=== PATIENT | female | born 1995 | race Caucasian/White ===

== ENCOUNTER 2016-12-03 23:42 | Emergency (ER) | payer SELFPAY ==
[~2016-12-03] VITALS: Ht 167.6 cm; Wt 99.8 kg
[2016-12-03 23:44] VITALS: BP 138/76
--- NOTE | 2016-12-03 23:59 | NUR ---
PATIENT AMBULATED TO ER BED 8.
--- NOTE | 2016-12-04 00:08 | NUR ---
PATIENT PRESENTS TO ED WITH ABD PAIN, NAUSEA, DIZZINESS, FOR A WEEK,SHAKING AND FEELING TO PASS OUT . SKIN IS PINK/WARM/DRY; AAOX4 WITH EVEN AND STEADY GAIT; LUNGS CLEAR BL; HR EVEN AND REGULAR; PT DENIES ANY FEVER, CP, SOB, OR COUGH AT THIS TIME; PATIENT STATES PAIN OF 8/10 AT THIS TIME; VSS; PATIENT POSITIONED FOR COMFORT; HOB ELEVATED; BEDRAILS UP X2; BED DOWN. ER MD MADE AWARE OF PT STATUS.
--- NOTE | 2016-12-04 00:10 | NUR ---
PATIENT BEING EVALUATED BY DR. JENNINGS.
[2016-12-04] MEDS ORDERED: PROCHLORPERAZINE 10 MG/2 ML VIAL IM ONE (00:25)
[2016-12-04] MEDS ORDERED: diphenhydrAMINE 50 MG/ML VIAL IM ONE (00:25)
[2016-12-04 00:59] VITALS: BP 132/79
--- NOTE | 2016-12-04 00:59 | NUR ---
Patient discharged with v/s stable. Written and verbal after care instructions given and explained. Patient alert, oriented and verbalized understanding of instructions. Ambulatory with steady gait. All questions addressed prior to discharge. ID band removed. Patient advised to follow up with PMD. Rx of BENADRYL 25MG AND COMPAZINE 10MG given. Patient educated on indication of medication including possible reaction and side effects. Opportunity to ask questions provided and answered.
== END 2016-12-04 00:59 | disposition home or self-care (01) ==
LOC: MED 23:42
DX: G43.909 Migraine, unspecified, not intractable, without status migrainosus (principal); R03.0 Elevated blood-pressure reading, without diagnosis of hypertension; R10.9 Unspecified abdominal pain
CPT/HCPCS: 81002; 81025; 96372; 99284; J0780; J1200

== ENCOUNTER 2017-07-06 16:14 | Emergency (ER) | payer MEDICAID ==
[~2017-07-06] VITALS: Ht 167.6 cm; Wt 114.4 kg
[2017-07-06 17:27] VITALS: BP 114/66
--- NOTE | 2017-07-06 20:00 | NUR ---
22/F c/o lower abdcominal cramping since this am. Pt reports being 5 weeks . G-1 P-0. Patient c/o severe nausea and vomiting since this am. Denies vaginal bleeding or discharge. Patient is AOX4, skin warm and dry. Pt also c/o dizziness at this time. VSS. Boyfriend with pt. Comfort needs provided.
[2017-07-06] MEDS ORDERED: NACL 0.9% 1,000 ML IV ONE (20:10)
[2017-07-06] MEDS ORDERED: ONDANSETRON 4 MG/2 ML VIAL IVP ONE (20:10)
[2017-07-06 20:22] LABS: BASOPHILS # (AUTO) 0.7 K/uL (0.00-0.22); BASOPHILS % (AUTO) 4.7 % (0.0-2.0); EOSINOPHILS # (AUTO) 0.1 K/uL (0-0.4); EOSINOPHILS % (AUTO) 0.4 % (0.0-4.0); LYMPHOCYTES # (AUTO) 1.7 K/uL (2.5-16.5); LYMPHOCYTES % (AUTO) 11.9 % (20.5-51.1); MEAN CORPUSCULAR HEMOGLOBIN 30 pg (27-31); MEAN CORPUSCULAR HGB CONC 33 g/dL (33-37); MEAN CORPUSCULAR VOLUME 89 fL (80-94); MONOCYTES # (AUTO) 0.7 K/uL (0.8-1.0); NEUTROPHILS # (AUTO) 11.4 K/uL (1.8-7.7); PLATELET COUNT (AUTO) 350 K/uL (140-450); RED BLOOD CELL COUNT(AUTO) 4.38 MIL/uL (4.20-5.40); RED CELL DISTRIBUTION WIDTH 13.4 % (11.6-13.7); WHITE BLOOD COUNT (AUTO) 14.6 K/uL (4.8-10.8)
[2017-07-06] MEDS ORDERED: METOCLOPRAMIDE 10 MG/2 ML INJ VIAL IVP ONE ×2 (20:50→23:25)
[2017-07-06] MEDS ORDERED: MORPHINE SULFATE 4 MG/ML SYR IVP ONE ×2 (20:50→21:05)
[2017-07-06 21:30] LABS: ANION GAP 16.5 (8-16); CARBON DIOXIDE 22.1 mmol/L (21-32); CREATININE 0.6 mg/dL (0.6-1.3); POTASSIUM 3.6 mmol/L (3.5-5.1)
--- NOTE | 2017-07-06 21:31 | NUR ---
Pt report given to Maria De Jesus TRINIDAD. Transfer of care at this time.
[2017-07-06 21:35] LABS: ALBUMIN 3.7 g/dL (3.4-5.0); TOTAL BILIRUBIN 0.6 mg/dL (0.0-1.0)
[2017-07-06 22:05] LABS: APPEARANCE,URINE CLEAR (CLEAR); BILIRUBIN,URINE 1+ (NEGATIVE); BLOOD, URINE NEGATIVE (NEGATIVE); COLOR,URINE YELLOW (YELLOW); LEUKOCYTE ESTERASE ,URINE NEGATIVE (NEGATIVE); NITRITE, URINE NEGATIVE (NEGATIVE); UGLUCOSE NEGATIVE (NEGATIVE)
--- NOTE | 2017-07-07 00:04 | NUR ---
NO VOMITING NOTED SINCE ADMINISTRATION OF REGLAN.
--- NOTE | 2017-07-07 00:04 | NUR ---
US AT BEDSIDE.
[2017-07-07 01:00] VITALS: BP 114/69
--- NOTE | 2017-07-07 01:00 | NUR ---
Patient discharged with v/s stable. Written and verbal after care instructions given and explained. Patient alert, oriented and verbalized understanding of instructions. Ambulatory with steady gait. All questions addressed prior to discharge. ID band removed. Patient advised to follow up with PMD. Rx of zofran 4mg, reglan 10mg given. Patient educated on indication of medication including possible reaction and side effects. Opportunity to ask questions provided and answered.
[2017-07-07 03:08] LABS: RBC,URINE 0-5 (RARE) /HPF (0-5); WBC,URINE 0-5 (RARE) /HPF (0-5)
[2017-07-08 06:14] LABS: CHLAMYDIA TRACHOMATIS AMP DNA Negative (Negative)
== END 2017-07-07 01:00 | disposition home or self-care (01) ==
LOC: MED 16:14
DX: O99.611 Diseases of the digestive system complicating pregnancy, first trimester (principal); O21.0 Mild hyperemesis gravidarum; Z3A.01 Less than 8 weeks gestation of pregnancy
CPT/HCPCS: 36415; 76705; 80053; 81001; 82948; 83690; 84702; 85025; 86900; 86901; 87491; 96361; 96374; 96375; 96376; 99285; J2270; J2405; J2765; J7030; Q0092

== ENCOUNTER 2019-09-03 16:45 | Inpatient (IN) | payer MEDICAID, OTHER ==
[~2019-09-03] VITALS: Ht 170.2 cm; Wt 132.0 kg
[2019-09-03 17:05] VITALS: BP 148/52
--- NOTE | 2019-09-03 17:09 | NUR ---
24 Y/O FEMALE C/O RUQ PAIN RADIATING TO MID BACK X 45 MIN. STATES 10/10 INTERMITTENT SHARP PAIN. STATES STERNAL CHEST PAIN WHEN ABD PAIN OCCURS. DENIES SOB. + NAUSEA. DENIES V/D. ABD SOFT, ROUND, NONTENDER. STATES SHE TOOK TYLENOL AT 1400 WITH NO PAIN RELIEF. PT TEARFUL IN BED STATES SHE IS UNABLE TO GET COMFORTABLE. RR EVEN AND UNLABORED. VSS MEDHX: DENIES ALLERGIES: NKA
--- NOTE | 2019-09-03 17:09 | NUR ---
PT TAKEN TO ER BED 7 VIA W/C
--- NOTE | 2019-09-03 17:42 | NUR ---
DR. TORREZ MADE AWARE OF PAIN
[2019-09-03] MEDS ORDERED: NACL 0.9% 1,000 ML IV SCH (17:53)
[2019-09-03] MEDS ORDERED: ONDANSETRON 4 MG/2 ML VIAL IVP ONE (17:55)
[2019-09-03] MEDS ORDERED: KETOROLAC 30 MG/ML VIAL IVP ONE (17:55)
--- NOTE | 2019-09-03 18:22 | NUR ---
ULTRASOUND AT BEDSIDE
[2019-09-03 18:23] LABS: BASOPHILS % (AUTO) 0.2 % (0.0-2.0); EOSINOPHILS # (AUTO) 0.1 K/uL (0-0.4); EOSINOPHILS % (AUTO) 0.8 % (0.0-4.0); HEMATOCRIT 40.6 % (36-48); HEMOGLOBIN 13.5 g/dL (12.0-16.0); LYMPHOCYTES # (AUTO) 1.5 K/uL (2.5-16.5); LYMPHOCYTES % (AUTO) 9.1 % (20.5-51.1); MEAN CORPUSCULAR HEMOGLOBIN 29 pg (27-31); MEAN CORPUSCULAR HGB CONC 33 g/dL (33-37); MEAN CORPUSCULAR VOLUME 88.5 fL (80-94); MONOCYTES # (AUTO) 0.6 K/uL (0.8-1.0); MONOCYTES % (AUTO) 3.5 % (1.7-9.3); NEUTROPHILS # (AUTO) 14.4 K/uL (1.8-7.7); NEUTROPHILS % (AUTO) 86.4 % (42.2-75.2); PLATELET COUNT (AUTO) 319 K/uL (140-450); RED BLOOD CELL COUNT(AUTO) 4.59 MIL/uL (4.20-5.40); RED CELL DISTRIBUTION WIDTH 14.3 % (11.6-13.7); WHITE BLOOD COUNT (AUTO) 16.7 K/uL (4.8-10.8)
[2019-09-03 18:39] LABS: ALBUMIN 3.7 g/dL (3.4-5.0); ANION GAP 10.3 (8-16); CARBON DIOXIDE 28.5 mmol/L (21-32); CREATININE 0.6 mg/dL (0.6-1.3); POTASSIUM 3.8 mmol/L (3.5-5.1); TOTAL BILIRUBIN 0.6 mg/dL (0.0-1.0)
[2019-09-03 18:40] LABS: APPEARANCE,URINE CLEAR (CLEAR); BILIRUBIN,URINE NEGATIVE (NEGATIVE); BLOOD, URINE NEGATIVE (NEGATIVE); COLOR,URINE YELLOW (YELLOW); LEUKOCYTE ESTERASE ,URINE NEGATIVE (NEGATIVE); NITRITE, URINE NEGATIVE (NEGATIVE); PH,URINE 5.5 (5.0-9.0); UGLUCOSE NEGATIVE (NEGATIVE)
[2019-09-03] MEDS ORDERED: PIPERACILLIN/TAZOBACTAM 3.375 GM in DEXTROSE 5% 50 ML IV ONE (19:10)
[2019-09-03] MEDS ORDERED: PIPERACILLIN/TAZOBACTAM 3.375 GM VIAL IV ONE (19:14)
--- NOTE | 2019-09-03 19:20 | NUR ---
REPORT GIVEN TO VIVI LEAVITT. TRANSFER OF CARE AT THIS TIME
--- NOTE | 2019-09-03 20:40 | NUR ---
Patient will be admitted to care of DR. SALOMON. Admited to M/S. Will go to room 123B. Belongings list completed. Report to VIVI TOLBERT.
--- NOTE | 2019-09-03 20:40 | NUR ---
PT ARRIVED AT UNIT VIA GURNEY, RECEIVED BEDSIDE REPORT FROM ED NURSE DAGMAR RN, PT STABLE, NO DISTRESS NOTED, IV TO L AC 20G PATENT INTACT, INFUSING WELL, PT ON ROOM AIR, NO SOB NOTED, ORIENT PT TO ROOM, CALL LIGHT, BED, MRSA SWAB TAKEN, V/S TAKEN, INITIAL ASSESSMENT DONE, ALL SAFETY PRECAUTION MET, CALL LIGHT WITHIN REACH, WILL CONTINUE TO MONITOR.
[2019-09-03 21:00] VITALS: BP 113/61
[2019-09-03] MEDS ORDERED: ONDANSETRON 4 MG/2 ML VIAL IVP PRN (21:20)
--- NOTE | 2019-09-03 21:25 | NUR ---
TALKED TO DR. SALOMON, ORDERS RECEIVED, WILL PUT IN ORDERS AND CONTINUE WITH ORDERS.
[2019-09-03] MEDS: MORPHINE SULFATE 2 MG/ML SYR IVP PRN (21:48)
[2019-09-03] MEDS: DEXT 5% /NACL 0.9% 1,000 ML IV SCH (21:48)
--- NOTE | 2019-09-03 21:48 | NUR ---
MEDICATED PT WITH MORPHINE FOR PAIN 03/12 TO THE HEAD. PT TOLERATED WELL, NO DISTRESS NOTED, CALL LIGHT WITHIN REACH, WILL CONTINUE TO MONITOR.
[2019-09-04] VITALS: BP 128/56
[2019-09-04] MEDS ORDERED: PIPERACILLIN/TAZOBACTAM 3.375 GM VIAL IV ONE ×2 (00:05→05:00)
[2019-09-04] MEDS: KETOROLAC 30 MG/ML VIAL IVP PRN ×2 (00:14→18:29)
--- NOTE | 2019-09-04 00:14 | NUR ---
PT STATED STARTED TO FEEL PAIN AGAIN 01/09 TO THE ABD, MEDICATION TORADOL PER DR ORDER ADMINISTERED, PT TOLERATED WELL, CALL LIGHT WITHIN REACH, WILL CONTINUE TO MONITOR.
[2019-09-04] MEDS: PIPERACILLIN/TAZOBACTAM 3.375 GM in DEXTROSE 5% 50 ML IV SCH ×3 (00:17→12:58)
--- NOTE | 2019-09-04 01:18 | NUR ---
TALKED TO DR. SALOMON REGARDING PT FEELING ANXIOUS AND CRYING, PER TO ORDER ATIVAN 1MG IVP ONCE. WILL PUT IN ORDER AND CONTINUE WITH ORDERS.
[2019-09-04] MEDS ORDERED: LORazepam 2 MG/ML VIAL IVP SCH (01:20)
--- NOTE | 2019-09-04 01:34 | NUR ---
MEDICATION ADMINISTERED PT TOLERATED WELL, NO DISTRESS NOTED, CALL LIGHT WITHIN REACH, WILL CONTINUE TO MONITOR.
--- NOTE | 2019-09-04 03:18 | NUR ---
CHECKED ON PT, PT SLEEPING, NO DISTRESS NOTED, CALL LIGHT WITHIN REACH, WILL CONTINUE TO MONITOR.
[2019-09-04 04:20] LABS: BASOPHILS % (AUTO) 0.3 % (0.0-2.0); EOSINOPHILS # (AUTO) 0.1 K/uL (0-0.4); EOSINOPHILS % (AUTO) 1.5 % (0.0-4.0); HEMATOCRIT 35.7 % (36-48); LYMPHOCYTES # (AUTO) 2.4 K/uL (2.5-16.5); LYMPHOCYTES % (AUTO) 30.5 % (20.5-51.1); MEAN CORPUSCULAR HEMOGLOBIN 30 pg (27-31); MEAN CORPUSCULAR HGB CONC 34 g/dL (33-37); MEAN CORPUSCULAR VOLUME 87.7 fL (80-94); MONOCYTES # (AUTO) 0.5 K/uL (0.8-1.0); MONOCYTES % (AUTO) 6.8 % (1.7-9.3); NEUTROPHILS # (AUTO) 4.7 K/uL (1.8-7.7); NEUTROPHILS % (AUTO) 60.9 % (42.2-75.2); PLATELET COUNT (AUTO) 273 K/uL (140-450); RED BLOOD CELL COUNT(AUTO) 4.07 MIL/uL (4.20-5.40); RED CELL DISTRIBUTION WIDTH 14.2 % (11.6-13.7); WHITE BLOOD COUNT (AUTO) 7.8 K/uL (4.8-10.8)
[2019-09-04 04:46] LABS: PROTHROMBIN TIME 9.9 secs (10.8-13.4)
[2019-09-04 04:48] LABS: ALBUMIN 2.9 g/dL (3.4-5.0); ANION GAP 7.3 (8-16); CARBON DIOXIDE 27.3 mmol/L (21-32); CREATININE 0.6 mg/dL (0.6-1.3); POTASSIUM 3.6 mmol/L (3.5-5.1); TOTAL BILIRUBIN 0.8 mg/dL (0.0-1.0)
[2019-09-04] MEDS: DEXT 5% /NACL 0.9% 1,000 ML IV SCH ×3 (05:20→22:17)
--- NOTE | 2019-09-04 07:30 | NUR ---
ENDORSED PT TO DAY SHIFT NURSE BRISA TRINIDAD, PT STABLE, NO DISTRESS NOTED, CALL LIGHT WITHIN REACH
--- NOTE | 2019-09-04 07:41 | NUR ---
RECEIVED PT FROM PET AMBASSADOR FOR CONTINUITY OF CARE. PT IS AAOX4, COOPERATIVE AND ABLE TO MAKE NEEDS KNOWN. PT ON RA WITH NO SOB OR DISTRESS NOTED. SKIN INTACT. IV IN THE L AC 20G INFUSING D5NS @ 125ML/HR. PT STATES SHE HAS 9/10 PAIN. WILL MEDICATE. DISCUSSED POC WITH PT AND PT VERBALIZED UNDERSTANDING. BOARD UPDATED. SAFETY MEASURES IN [place]. WILL CONTINUE TO ROUND ON PT.
[2019-09-04 08:00] VITALS: BP 113/53
[2019-09-04] MEDS: MORPHINE SULFATE 2 MG/ML SYR IVP PRN (08:24)
--- NOTE | 2019-09-04 08:40 | NUR ---
PT TAKEN TO OR. PT LEFT IN STABLE CONDITION.
[2019-09-04] MEDS ORDERED: LIDOCAINE 1% 500 MG/50 ML VIAL ONE (08:45)
[2019-09-04] MEDS ORDERED: BUPIVACAINE-MPF 0.5% 30 ML VIAL INJ ONE (08:46)
[2019-09-04] MEDS ORDERED: NEOSTIGMINE 1:1000 10 MG/10 ML VIAL ONE (08:50)
[2019-09-04] MEDS ORDERED: SUCCINYLCHOLINE CHLORIDE 200 MG/10 ML VIAL IVP ONE (08:50)
[2019-09-04] MEDS ORDERED: ROCURONIUM 50 MG/5 ML VIAL IV ONE (08:50)
[2019-09-04] MEDS ORDERED: DESFLURANE 240 ML BTL INH ONE (08:50)
[2019-09-04] MEDS ORDERED: ONDANSETRON 4 MG/2 ML VIAL ONE (08:50)
[2019-09-04] MEDS ORDERED: LIDOCAINE 2% 100 MG/5 ML SYR IVP ONE (08:50)
[2019-09-04] MEDS ORDERED: GLYCOPYRROLATE 0.2 MG/ML VIAL ONE (08:50)
[2019-09-04] MEDS ORDERED: PROPOFOL 200 MG/20 ML VIAL IV ONE (08:50)
[2019-09-04] MEDS ORDERED: KETOROLAC 30 MG/ML VIAL ONE (08:50)
[2019-09-04] MEDS ORDERED: MIDAZOLAM 2 MG/2 ML VIAL ONE (08:50)
[2019-09-04] MEDS ORDERED: DEXAMETHASONE 4 MG/ML VIAL ONE (08:50)
[2019-09-04] MEDS ORDERED: fentaNYL 0.05 MG/ML VIAL ONE (08:50)
--- NOTE | 2019-09-04 08:52 | NUR ---
PATIENT HAS BEEN SCREENED AND CATEGORIZED LOW NUTRITION RISK. PATIENT WILL BE SEEN WITHIN 7 DAYS OF ADMISSION. 09/10/[address]
[2019-09-04] MEDS ORDERED: CITRIC ACID/SODIUM CITRATE 30 ML UDC PO SCH (09:05)
--- NOTE | 2019-09-04 09:22 | NUR ---
DC PLANNIN YRS OLD FEMALE PATIENT WAS ADMITTED FROM HOME WITH A DX OF CHOLECYSTITIS. PT HAS NO MEDICAL HX . ABDOMINAL US SHOWED ENLARGED ECHOGENIC LIVER , CHOLELITHIASIS WITH OUT EVIDENCE OF CHOLECYSTITIS ADMINISTERED PAIN MEDS , IVF ,CONSULTIED WITH GI DR HUA AND SURGICAL CONSULT WITH DR SHEARER. DC PLAN PER ORDER CM TO FOLLOW. Addendum: 09/04/19 at 1516 by Yamel Gao DC PLANNING: F/U APPOINTMENT DONE WITH PCP DR NELSON ON Monday09/10/19 AT 1115 AM AND ABDULLAHI REMINDER GIVEN TO THE PT.
[2019-09-04] MEDS ORDERED: HYDROmorphone 1 MG/ML AMP IVP PRN (10:10)
[2019-09-04] MEDS ORDERED: ONDANSETRON 4 MG/2 ML VIAL IVP PRN (10:10)
[2019-09-04] MEDS ORDERED: MEPERIDINE 25 MG/ML SYR IVP PRN ×2 (10:40→10:50)
[2019-09-04] MEDS ORDERED: MEPERIDINE 25 MG/ML SYR ONE (10:43)
--- NOTE | 2019-09-04 11:20 | NUR ---
PT RETURNED FROM OR. PT HAS LAP CHOLEY WITH 4 INCISIONS NOTED TO ABD. INCISIONS REINFORCED WITH DERMABOND. PT VERY SLEEPY BUT COMPLAINING OF PAIN. WILL MEDICATE INDICATED.
[2019-09-04] MEDS: HYDROmorphone 1 MG/ML AMP IVP PRN ×2 (11:56→18:54)
--- NOTE | 2019-09-04 13:21 | NUR ---
PT RESTING IN BED. ALL NEEDS MET.
--- NOTE | 2019-09-04 15:41 | NUR ---
PT RESTING IN BES WITH FAMILY AT BEDSIDE. ALL NEEDS MET.
[2019-09-04 16:00] VITALS: BP 127/54
--- NOTE | 2019-09-04 17:26 | NUR ---
PT RESTING IN BED. ALL NEEDS ME.T
--- NOTE | 2019-09-04 19:54 | NUR ---
ENDORSED PT TO OUTSIDE UPHOLSTERER FOR CONTINUITY OF CARE. PT IN STABLE CONDITION.
[2019-09-04] MEDS: ONDANSETRON 4 MG/2 ML VIAL IVP PRN (19:55)
--- NOTE | 2019-09-04 19:55 | NUR ---
RECD, RESTING IN BED, AWAKE, A/OX4, OBESE. RESPIRATION EVEN AND UNLABORED. IV OF D51/2 NS AT 125 ML/HR INFUSING, LEFT AC G20. INCISION IN THE ABDOMEN (4) WITH DERMA CHÁVEZ, OPEN TO AIR, ALL DRY AND INTACT. TOLERATING CLEAR LIQUID, VOIDING WELL, PASSING GAS. PLAN OF CARE DISCUSSED. VERBALIZED UNDERSTANDING. ABDOMINAL PAIN 1/10, STATED TOLERABLE, WAS MEDICATED BY AM NURSE. AT THE BEDSIDE.
--- NOTE | 2019-09-04 19:55 | NUR ---
NAUSEATED, MEDICATED WITH ZOFRAN BY VIVI JOLLY.
--- NOTE | 2019-09-04 20:30 | NUR ---
RESTING COMFORTABLY IN BED, NO NAUSEA NOTED.
--- NOTE | 2019-09-04 20:41 | NUR ---
Patient's Plan of Care was discussed and reviewed with MYKE: EMILY
[2019-09-04] MEDS: HYDROcodone/APAP 5/325 MG 1 TAB TAB PO PRN (22:34)
[2019-09-05] VITALS: BP 120/60
[2019-09-05 02:14] VITALS: BP 125/67
[2019-09-05] MEDS: HYDROmorphone 1 MG/ML AMP IVP PRN ×2 (02:25→08:38)
[2019-09-05] MEDS: ONDANSETRON 4 MG/2 ML VIAL IVP PRN ×2 (02:26→08:38)
--- NOTE | 2019-09-05 02:26 | NUR ---
NAUSEATED, MEDICATED WITH ZOFRAN PER MD ORDER BY VIVI JOLLY.
--- NOTE | 2019-09-05 03:00 | NUR ---
RESTING COMFORTABLY IN BED, NO NAUSEA NOTED.
--- NOTE | 2019-09-05 05:00 | NUR ---
STILL SLEEPING COMFORTABLY IN BED.
[2019-09-05] MEDS: DEXT 5% /NACL 0.9% 1,000 ML IV SCH ×2 (05:20→07:56)
[2019-09-05] MEDS: HYDROcodone/APAP 5/325 MG 1 TAB TAB PO PRN ×2 (05:33→12:07)
[2019-09-05 06:20] LABS: BASOPHILS % (AUTO) 0.2 % (0.0-2.0); EOSINOPHILS % (AUTO) 0.1 % (0.0-4.0); HEMOGLOBIN 11.3 g/dL (12.0-16.0); LYMPHOCYTES # (AUTO) 2.1 K/uL (2.5-16.5); LYMPHOCYTES % (AUTO) 18.3 % (20.5-51.1); MEAN CORPUSCULAR HEMOGLOBIN 29 pg (27-31); MEAN CORPUSCULAR HGB CONC 33 g/dL (33-37); MEAN CORPUSCULAR VOLUME 88.8 fL (80-94); MONOCYTES # (AUTO) 0.6 K/uL (0.8-1.0); MONOCYTES % (AUTO) 5.4 % (1.7-9.3); NEUTROPHILS # (AUTO) 8.8 K/uL (1.8-7.7); PLATELET COUNT (AUTO) 270 K/uL (140-450); RED BLOOD CELL COUNT(AUTO) 3.83 MIL/uL (4.20-5.40); RED CELL DISTRIBUTION WIDTH 14.3 % (11.6-13.7); WHITE BLOOD COUNT (AUTO) 11.6 K/uL (4.8-10.8)
[2019-09-05 07:13] LABS: ALBUMIN 2.8 g/dL (3.4-5.0); CARBON DIOXIDE 27.9 mmol/L (21-32); CREATININE 0.6 mg/dL (0.6-1.3); POTASSIUM 3.9 mmol/L (3.5-5.1); TOTAL BILIRUBIN 0.3 mg/dL (0.0-1.0)
--- NOTE | 2019-09-05 07:20 | NUR ---
CONDITION REMAIN STABLE. ENDORSED TO AM SHIFT NURSE FOR CONTINUITY OF CARE.
--- NOTE | 2019-09-05 07:21 | NUR ---
RECEIVED REPORT FROM THE PAINT ROLLER ASSEMBLER NURSE AT BEDSIDE. PT IS AWAKE AND ORIENTED. SIG OTHER SLEEPING IN THE CHAIR NEXT TO PT. PT IS MS. S/P LAP ROBERT ON 09/03. PT HAS 4 ABD INCISIONS W/ DERMABOND. LBM 09/02. IV ON L AC 20G D5NS AT 125ML/HR. WILL CONTINUE TO MONITOR PT.
[2019-09-05 08:00] VITALS: BP 123/58
--- NOTE | 2019-09-05 08:38 | NUR ---
REQUESTED PAIN MED AN NAUSEA MEDICATION. PAIN LEVEL 8/10. ADMINISTERED DILAUDID AND ZOFRAN. PT TOLERATED WELL. ENCOURAGE PT TO AMBULATE, DRINK PLENTY OF FLUIDS. WILL CONTINUE TO MONITOR PT.
--- NOTE | 2019-09-05 09:30 | NUR ---
DR. Светлана SMITH HERE. PER , RADHA FLUIDS AND GIVE PT AN INCENTIVE SPIROMETER. D/C TODAY. WILL START ON DC INSTRUCTIONS.
--- NOTE | 2019-09-05 12:02 | NUR ---
PT PERFORMED IS WELL, PREDICTED 2900/1900 ACTUAL, RN AWARE
[2019-09-05] MEDS ORDERED: ACET-9525 PO (12:15)
[2019-09-05] MEDS ORDERED: ONDA4TAB PO (12:15)
[2019-09-05] MEDS ORDERED: HYDR-5122 PO (14:55)
--- NOTE | 2019-09-05 15:10 | NUR ---
DC INSTRUCTIONS GIVEN TO PT. SIGNED APPROPRIATE PAPERWORK. PRESCRIPTION FOR NORCO AND ZOFRAN GIVEN. EDUCATED PT RE CONSTIPATION WITH OPIOIDS AND TO TAKE A STOOL SOFTENER, PLENTY OF WATER, AND AMBULATING. PT VERBALIZED UNDERSTANDING. PICTURE OF ABD INCISIONS TAKEN. IV TAKEN OUT. NO BLEEDING NOTED. SPOUSE WILL TAKE ALL PERSONAL BELONGINGS TO THE CAR AND WAIT AT THE DROP OFF. PT IS TO GET DRESSED AND WILL LET US KNOW WHEN PT IS READY TO GO.
--- NOTE | 2019-09-05 15:25 | NUR ---
WHEELED PT OUT IN A WHEELCHAIR TO THE FRONT OF THE HOSPITAL WHERE SPOUSE IS WAITING IN HIS CAR. PT IS IN STABLE CONDITION.
== END 2019-09-05 15:25 | disposition home or self-care (01) | DRG 263 ==
LOC: MED 16:45 → MTU 19:15 → MMU 09-05 02:10
PROVIDERS: ADMIT Internal Medicine; ATTEND Internal Medicine
PROC: 0FT44ZZ Resection of Gallbladder, Percutaneous Endoscopic Approach (ICD-10-PCS; principal; 2019-09-04 09:00)
DX: K85.10 Biliary acute pancreatitis without necrosis or infection (principal); E66.01 Morbid (severe) obesity due to excess calories; K80.20 Calculus of gallbladder without cholecystitis without obstruction; Z68.42 Body mass index [BMI] 45.0-49.9, adult
CPT/HCPCS: 36415; 76705; 80053; 81003; 81025; 83605; 83690; 85025; 85610; 85730; 87040; 87081; 88304; 96365; 96375; 99285; J0330; J1100; J1170; J1885; J2001; J2060; J2175; J2250; J2270; J2405; J2543; J2704; J2710; J3010; J3490; J7042; J7060; Q0092

== ENCOUNTER 2019-09-06 07:50 | Emergency (ER) | payer OTHER ==
[~2019-09-06] VITALS: Ht 170.2 cm; Wt 133.8 kg
[~2019-09-06 07:50] MED LIST: HYDR-5122 PO; ONDA4TAB PO
[2019-09-06 07:51] VITALS: BP 137/56
--- NOTE | 2019-09-06 07:58 | NUR ---
PT TO ER BED 8
--- NOTE | 2019-09-06 08:04 | NUR ---
24 Y/O F C/C SHORTNESS OF BREATH/CHEST PAIN/NAUSEA X THIS AM 0430HOURS. PER PT CHEST PAIN 02/09,PRESSURE,RADIATING TO ABDOMEN,ON AND OFF. PT PLACED ON NC 2LPM,FULL FOWLERS ON BED, SPO2 IN TRIAGE 100%. PT NKA. NO HX. SX GALLBLADDER ON MONDAY. NO RX. NO V/D. PT STATES SOB IS NOT RELATED TO GALLBLADDER SX. SIDE RAIL X1. RN AT BEDSIDE. Addendum: 09/06/19 at 0825 by [email or web address] ABDOMEN SOFT. LAST BM NORMAL 09/04/19.
--- NOTE | 2019-09-06 08:28 | NUR ---
X RAY AT BEDSIDE.
[2019-09-06 08:37] LABS: ALBUMIN 3.3 g/dL (3.4-5.0); ANION GAP 11.5 (8-16); CARBON DIOXIDE 26.1 mmol/L (21-32); CREATININE 0.6 mg/dL (0.6-1.3); POTASSIUM 3.6 mmol/L (3.5-5.1); TOTAL BILIRUBIN 0.2 mg/dL (0.0-1.0)
[2019-09-06 08:42] LABS: BASOPHILS # (AUTO) 0.1 K/uL (0.00-0.22); BASOPHILS % (AUTO) 0.4 % (0.0-2.0); EOSINOPHILS # (AUTO) 0.1 K/uL (0-0.4); EOSINOPHILS % (AUTO) 0.9 % (0.0-4.0); HEMOGLOBIN 11.6 g/dL (12.0-16.0); LYMPHOCYTES # (AUTO) 3.6 K/uL (2.5-16.5); LYMPHOCYTES % (AUTO) 29.1 % (20.5-51.1); MEAN CORPUSCULAR HEMOGLOBIN 29 pg (27-31); MEAN CORPUSCULAR HGB CONC 32 g/dL (33-37); MEAN CORPUSCULAR VOLUME 90.3 fL (80-94); MONOCYTES # (AUTO) 0.7 K/uL (0.8-1.0); MONOCYTES % (AUTO) 5.8 % (1.7-9.3); NEUTROPHILS # (AUTO) 7.9 K/uL (1.8-7.7); NEUTROPHILS % (AUTO) 63.8 % (42.2-75.2); PLATELET COUNT (AUTO) 270 K/uL (140-450); RED BLOOD CELL COUNT(AUTO) 3.98 MIL/uL (4.20-5.40); RED CELL DISTRIBUTION WIDTH 14.1 % (11.6-13.7); WHITE BLOOD COUNT (AUTO) 12.3 K/uL (4.8-10.8)
[2019-09-06] MEDS ORDERED: ONDANSETRON 4 MG/2 ML VIAL IVP ONE (09:05)
[2019-09-06 09:53] LABS: PROTHROMBIN TIME 9.2 secs (10.8-13.4)
[2019-09-06] MEDS ORDERED: MORPHINE SULFATE 4 MG/ML SYR IVP ONE (10:10)
--- NOTE | 2019-09-06 11:10 | NUR ---
Patient discharged with v/s stable. Written and verbal after care instructions given and explained. Patient verbalized understanding. Ambulatory with steady gait. All questions addressed prior to discharge. Advised to follow up with PMD.
[2019-09-06 11:13] VITALS: BP 117/93
== END 2019-09-06 11:10 | disposition home or self-care (01) ==
LOC: MED 07:50
DX: R06.02 Shortness of breath (principal); R07.89 Other chest pain; R11.0 Nausea; F12.90 Cannabis use, unspecified, uncomplicated; Z90.49 Acquired absence of other specified parts of digestive tract; Z98.890 Other specified postprocedural states; Z79.899 Other long term (current) drug therapy
CPT/HCPCS: 36415; 71045; 71275; 80053; 81002; 81025; 84484; 85025; 85379; 85610; 85730; 96374; 96375; 99285; J2270; J2405; Q0092; Q9967

== ENCOUNTER 2020-02-20 01:35 | Emergency (ER) | payer OTHER ==
[~2020-02-20] VITALS: Ht 165.1 cm; Wt 136.1 kg
[2020-02-20 02:28] VITALS: BP 115/71
--- NOTE | 2020-02-20 02:30 | NUR ---
UA COLLECTED AND SENT TO LAB.
--- NOTE | 2020-02-20 02:35 | NUR ---
PT WAITING IN LOBBY.
[2020-02-20 02:55] LABS: APPEARANCE,URINE CLEAR (CLEAR); BILIRUBIN,URINE 1+ (NEGATIVE); BLOOD, URINE NEGATIVE (NEGATIVE); COLOR,URINE ORANGE (YELLOW); LEUKOCYTE ESTERASE ,URINE TRACE (NEGATIVE); NITRITE, URINE POSITIVE (NEGATIVE); UGLUCOSE TRACE (NEGATIVE)
[2020-02-20 03:16] LABS: RBC,URINE 0-5 /HPF (0-5)
--- NOTE | 2020-02-20 03:20 | NUR ---
pt ambulated to chair c from [facility] with steady gait
[2020-02-20] MEDS ORDERED: cefTRIAXone 1,000 MG VIAL ONE (03:26)
[2020-02-20] MEDS ORDERED: LIDOCAINE MPF 1% 5 ML ONE (03:27)
[2020-02-20 03:37] VITALS: BP 115/71
[2020-02-20] MEDS: cefTRIAXone 1,000 MG in LIDOCAINE MPF 1% 2.1 ML IM ONE (03:37)
== END 2020-02-20 03:37 | disposition home or self-care (01) ==
LOC: MED 01:35
DX: N39.0 Urinary tract infection, site not specified (principal); Z79.899 Other long term (current) drug therapy
CPT/HCPCS: 81001; 87086; 96372; 99283; J0696; J2001; 87186

== ENCOUNTER 2021-06-30 21:15 | Emergency (ER) | payer OTHER, SELFPAY ==
[~2021-06-30] VITALS: Ht 170.2 cm; Wt 136.1 kg
--- NOTE | 2021-06-30 21:40 | NUR ---
CALLED IN TENT FOR TRIAGE, NO ANSWER
[2021-06-30 22:03] VITALS: BP 100/45
[2021-07-01] MEDS ORDERED: ALBU0.0912 IH (02:24)
== END 2021-07-01 02:45 | disposition home or self-care (01) ==
LOC: MED 21:15
DX: J06.9 Acute upper respiratory infection, unspecified (principal); Z20.822 Contact with and (suspected) exposure to COVID-19; F12.90 Cannabis use, unspecified, uncomplicated; Z79.899 Other long term (current) drug therapy
CPT/HCPCS: 87804; 99283

== ENCOUNTER 2021-11-01 23:23 | Emergency (ER) | payer OTHER ==
[~2021-11-01] VITALS: Ht 160 cm; Wt 144.7 kg
[~2021-11-01 23:23] MED LIST changes: +ALBU0.0912 IH
[2021-11-01 23:44] VITALS: BP 110/85
--- NOTE | 2021-11-02 00:36 | NUR ---
PT AMBULATED TO BED 05
--- NOTE | 2021-11-02 01:07 | NUR ---
26 Y/O BIB SELF FOR ABD PAIN THAT RADIATES TO LOWER BACK X 2 DAYS . PT STATES WHEN SHE BENDS IT HURTS TO THE RIGHT. PT IS WITH 2ND BABY. PT HAS A WITH 1ST BABY. PT STATES WITH LAST PREGNANCT SHE DEVELOPED GALLSTONES AND HAD GALLBLADDER REMOVED. PT DENIES VAGINAL BLEEDING DC VAGINAL DISCHARGE. PT STATES NO PAIN WHEN URINATING. PT TOOK TYLENOL FOR PAIN. ALLERGIES: NKA SOCIAL HX: MARIJUANA USE PMH: gallbladder surgery, c- section.
--- NOTE | 2021-11-02 01:13 | NUR ---
lab at bedside
[2021-11-02 01:24] LABS: BASOPHILS % (AUTO) 0.4 % (0.0-2.0); EOSINOPHILS # (AUTO) 0.2 K/uL (0-0.4); EOSINOPHILS % (AUTO) 1.7 % (0.0-4.0); HEMATOCRIT 34.3 % (36-48); HEMOGLOBIN 11.5 g/dL (12.0-16.0); LYMPHOCYTES # (AUTO) 2.6 K/uL (2.5-16.5); LYMPHOCYTES % (AUTO) 26.3 % (20.5-51.1); MEAN CORPUSCULAR HEMOGLOBIN 31 pg (27-31); MEAN CORPUSCULAR HGB CONC 33 g/dL (33-37); MEAN CORPUSCULAR VOLUME 93.5 fL (80-94); MONOCYTES # (AUTO) 0.5 K/uL (0.8-1.0); MONOCYTES % (AUTO) 5.2 % (1.7-9.3); NEUTROPHILS # (AUTO) 6.7 K/uL (1.8-7.7); NEUTROPHILS % (AUTO) 66.4 % (42.2-75.2); PLATELET COUNT (AUTO) 298 K/uL (140-450); RED BLOOD CELL COUNT(AUTO) 3.67 MIL/uL (4.20-5.40); RED CELL DISTRIBUTION WIDTH 13.6 % (11.6-13.7)
[2021-11-02 01:27] LABS: APPEARANCE,URINE CLEAR (CLEAR); BILIRUBIN,URINE NEGATIVE (NEGATIVE); BLOOD, URINE NEGATIVE (NEGATIVE); COLOR,URINE YELLOW (YELLOW); LEUKOCYTE ESTERASE ,URINE NEGATIVE (NEGATIVE); NITRITE, URINE NEGATIVE (NEGATIVE); UGLUCOSE NEGATIVE (NEGATIVE)
--- NOTE | 2021-11-02 01:27 | NUR ---
ultra sound at bedside
--- NOTE | 2021-11-02 02:27 | NUR ---
pt laying down with lights off. pt req pain med
[2021-11-02] MEDS ORDERED: ACETAMINOPHEN EXTRA STRENGTH 500 MG TAB PO ONE (02:35)
[2021-11-02] MEDS ORDERED: ACET-10509 PO (03:20)
[2021-11-02] MEDS ORDERED: PNV1TABL8 PO (03:30)
[2021-11-02 03:44] VITALS: BP 126/89
--- NOTE | 2021-11-02 03:44 | NUR ---
Patient discharged with v/s stable. Written and verbal after care instructions given and explained. Patient alert, oriented and verbalized understanding of instructions. Ambulatory with steady gait. All questions addressed prior to discharge. ID band removed. Patient advised to follow up with PMD. Rx of ACETAMINOPHEN AND PLUS IRON TABLET given. Patient educated on indication of medication including possible reaction and side effects. Opportunity to ask questions provided and answered.
== END 2021-11-02 03:44 | disposition home or self-care (01) ==
LOC: MED 23:23
DX: O20.0 Threatened abortion (principal); M54.6 Pain in thoracic spine; Z3A.01 Less than 8 weeks gestation of pregnancy; Z90.49 Acquired absence of other specified parts of digestive tract; Z79.899 Other long term (current) drug therapy; Z79.891 Long term (current) use of opiate analgesic
CPT/HCPCS: 36415; 76817; 81003; 81025; 84702; 85025; 86900; 86901; 99285